=== PATIENT | female | born 1955 | race Caucasian/White ===

== ENCOUNTER 2016-12-04 17:26 | Emergency (ER) | payer MEDICARE, MEDICAID ==
[~2016-12-04 17:26] MED LIST: ASPIRIN LOW DOS81 M2 PO; BREO ELLIPTA 101 INH IN; CALTRATE 600+D PO; CIPROFLOXACN500 MG PO; FLEXERIL PO; GABAPENTIN300 MG PO; LIPITOR20 M1 PO; LORTAB 1010 MG PO; ONDANSETRON4 MG PO; PERCOCET 5/321 COMBO PO; PLAVIX75 MG PO; PROAIR HFA IN; SPIRIVA HANDIHALER IN; TRAMADOL HCL50 MG PO
== END 2016-12-04 17:54 | disposition left against medical advice (07) ==
LOC: ED 17:26 → LWOBS 17:54
DX: Z91.19 Patient's noncompliance with other medical treatment and regimen (principal)